=== PATIENT | male | born 1960 | race Caucasian/White ===

== ENCOUNTER 2019-04-07 07:51 | Day surgery (SDC) | payer BC ==
[~2019-04-07 07:51] MED LIST: ACETAMINOPHEN 500 MG TABLET PO ONE; CEFAZOLIN 1 Gram 1 GM/50 ML BAG IVPB ONE; CEFAZOLIN 2 Gram 2 GM/50 ML BAG IVPB ONE; CELECOXIB 100 MG CAPSULE PO ONE; FAMOTIDINE 20MG TABLET PO ONE; METOCLOPRAMIDE 10 MG TABLET PO ONE; SCOPOLAMINE 1 PATCH TDSY TD ONE; VANCOMYCIN 1GM/200ML PREMIX 1 GM/200 ML PIGGYBACK IVPB ONE
[2019-04-07] MEDS ORDERED: ROPIVACAINE HCL (NAROPIN) /PF 5MG/ML 20ML VIAL IV ONE (07:52)
[2019-04-07] MEDS ORDERED: LIDOCAINE 2% MDV (20MG/ML) 20ML VIAL IV ONE (07:52)
[2019-04-07] MEDS ORDERED: MIDAZOLAM HCL 2MG/2ML VIAL IV ONE (07:52)
[2019-04-07] MEDS ORDERED: ONDANSETRON HCL IV 4 MG/2 ML VIAL IVP ONE (07:52)
[2019-04-07] MEDS ORDERED: DEXAMETHASONE 4 MG/ML 1ML VIAL IVP ONE (07:52)
[2019-04-07] MEDS ORDERED: PROPOFOL 10 MG/ML VIAL IV ONE (07:52)
[2019-04-07] MEDS ORDERED: HYDROMORPHONE HCL 2 MG/ML VIAL IM PRN ×2 (08:18)
[2019-04-07] MEDS ORDERED: AL HYDROX/MAG HYDROX 30ML UD PO PRN (08:18)
[2019-04-07] MEDS ORDERED: PROMETHAZINE HCL 12.5 MG in 0.9 % SODIUM CHLORIDE 100ML 50 ML IVPB PRN (08:18)
[2019-04-07] MEDS ORDERED: ONDANSETRON HCL IV 4 MG/2 ML VIAL IVP PRN (08:18)
[2019-04-07] MEDS ORDERED: METOCLOPRAMIDE HCL 10 MG/2 ML VIAL IVP PRN (08:18)
[2019-04-07] MEDS ORDERED: ACETAMINOPHEN 325 MG TAB PO PRN (08:18)
[2019-04-07] MEDS ORDERED: NALOXONE 0.4 MG/1 ML VIAL IVP PRN (08:18)
[2019-04-07] MEDS ORDERED: HYDROCODONE/APAP 5/325MG TABLET PO PRN (08:18)
[2019-04-07] MEDS ORDERED: ACETAMINOPHEN W/ CODEINE 300MG/60MG TABLET PO PRN (08:18)
[2019-04-07] MEDS ORDERED: HYDROCODONE/APAP 7.5/325MG TABLET PO PRN (08:18)
[2019-04-07] MEDS ORDERED: DIPHENHYDRAMINE HCL 25 MG CAPSULE PO PRN (08:18)
[2019-04-07] MEDS ORDERED: KETOROLAC 30 MG/ML VIAL IVP PRN (08:18)
[2019-04-07] MEDS ORDERED: ACETAMINOPHEN W/ CODEINE 300MG/30MG TABLET PO PRN ×2 (08:18)
[2019-04-07] MEDS ORDERED: TRAMADOL HCL 50 MG TABLET PO PRN ×2 (08:18)
[2019-04-07] MEDS ORDERED: BISACODYL 10 MG SUPP RC PRN (08:18)
[2019-04-07] MEDS ORDERED: ZOLPIDEM TARTRATE 5 MG TABLET PO PRN (08:18)
[2019-04-07] MEDS ORDERED: MAGNESIUM HYDROXIDE 30 ML UDC PO PRN (08:18)
[2019-04-07] MEDS ORDERED: RINGERS SOLUTION,LACTATED 1,000 ML IV ONE ×4 (08:30→11:45)
[2019-04-07 08:48] LABS: ABO GROUP A; ANTIBODY SCREEN NEGATIVE (NEGATIVE); RH TYPE POSITIVE
[2019-04-07] MEDS ORDERED: BUPIVACAINE 0.5% W/EPI MPF 30 ML VIAL SQ ONE (10:48)
[2019-04-07] MEDS ORDERED: BUPIVACAINE LIPOSOME 266MG/20ML VIAL SQ ONE (10:48)
[2019-04-07] MEDS ORDERED: TRANEXAMIC ACID 1,000 MG/10 ML ML IU ONE (10:48)
[2019-04-07] MEDS ORDERED: TRANEXAMIC ACID 1,000 MG/10 ML ML IVPB ONE (10:49)
[2019-04-07] MEDS ORDERED: VANCOMYCIN HCL 1 GM VIAL IR ONE (10:49)
[2019-04-07] MEDS ORDERED: VANCOMYCIN HCL 1 GM VIAL IU ONE (10:49)
[2019-04-07] MEDS ORDERED: DEXTROSE 5 % AND 0.9 % NACL 1,000 ML IV PRN (13:00)
[2019-04-07] MEDS ORDERED: FLU VAC QS 2019-20 (INPT, 6MO+) 60MCG/0.5ML IM ONE (13:29)
[2019-04-07] MEDS: HYDROCODONE/APAP 5/325MG TABLET PO PRN (14:10)
[2019-04-07] MEDS ORDERED: PROAIR HFA INH PRN (14:33)
--- NOTE | 2019-04-07 15:43 | Rehab Evaluation ---
Patient Information - Patient Information Diagnosis: L Knee DJD Ordered Treatment: PT Evaluate and Treat Status: Initial Evaluation Surgery: Yes (L TKA) Date of Surgery: 04/07/19 Past Medical/Surgical Hx: PAST MEDICAL/SURGICAL HISTORY Past Surgical History RTKA 2013 C SCOPE RIGHT KNEE SCOPE 2002 PMH - Respiratory Hx Respiratory Disorders Yes Hx Asthma Yes: CONTROLLED WITH MEDS Hx Bronchitis Yes Hx Pneumonia Yes Hx Sleep Apnea Yes Hx of CPAP Yes Hx of SOB Yes: WITH EXERTION Comment: DRY COUGH X'S 9 MONTHS JUST STARTING A BURST OF PREDNISONE ALLERGY RELATED PMH - Cardiovascular Hx Cardiovascular Disorders Yes Hx Edema Yes: AT TIMES Hx Hypertension Yes: CONTROLLED WITH MEDS Hx Palpitations Yes: HX OF HAD NEGATIVE WORK UP Exercise Tolerance Fair Hx of Migraines Yes: HX OF Comment: D/T KNEE AND ASTHMA PMH - Neuro Hx Neurological Disorders Yes PMH - GI Hx Gastrointestinal Disorders Yes Hx Diverticulitis Yes: HX OF Hx Gastroesophageal Reflux Yes: ON MEDS WITH GOOD CONTROL Hx Liver Disease Yes: OCCASSIONAL HIGH LIVER ENZYMES UNKNOWN ETIOLOGY PMH - Hx Genitourinary Disorders No PMH - Endocrine Hx Endocrine Disorders No PMH - Musculoskeletal Hx Musculoskeletal Disorders Yes Hx Arthritis Yes: SHOULDER LEFT, HANDS LEFT KNEE PMH - Psych Hx Psychiatric Problems No PMH - Hematology/Oncology Hx Hematology/Oncology No Disorders Premorbid Status: Detail (Patient reported that he would use his cane at times before surgery for ambulation.) Social History: Detail (Patient lives in a 2-story home with his . His bedroom and bathroom are on the second floor and he reports that he will be using them when returning home. There are 12-15 steps to get to the second floor with 1 railing. There are 3 steps to enter the home with one railing on the left. In the bathroom there is a tub/shower combination with no grab bars, hand- held shower head, or tub bench. The toilet is of standard height and he stated that there is a sink and he can hang onto the tub to help him get up. He has a front-wheeled walker, a single point cane, and a 4-point cane available to him. 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 discharge.) Precautions: [place], Fall, Other (WBAT on L LE) - Time With Patient Total Time Spent With Patient (Min): 30 Treatment Procedures: Detail (Initial evaluation; low complexity The patient was left in bed with his call light and bedside table within reach. The nursing staff was notified of his position.) Subjective Information - Subjective Information Per Patient (Patient reported that he had sensation in the L LE and his pain was at 3/10 in the L LE.) Objective Data - Pain Pain Present: Yes (L LE) Pain Scale Used: Numeric (1 - 10) (3/10) - Mental Status Patient Orientation: Oriented x3 - Visual Perception Appears within normal limits for therapeutic activities - ROM Not within normal limits (L knee ROM is limited as expected s/p L TKA procedure. L hip and ankle, and R LE ROM is within normal limits for functional activities.) - Strength/Tone Not within normal limits (L knee strength is limited as expected s/p L TKA procedure. L ankle and hip, and R LE strength is within normal limits for functional activities.) - Bed Mobility Independent (Patient was able to move himself to the edge of the bed, and moved himself up in bed independently.) - Transfers Needs Assist (Patient required min assist to help move himslef to sitting from supine. Sit to supine, sit to stand, and stand to sit transfers were done independently.) - Balance Balance Sitting: Good Balance Standing: Good - Sensation Intact - Gait Detail (Patient ambulated 110 feet over smooth surfaces, WBAT on the L LE, with a front-wheeled walker and contact guard of 1.) Therapy Assessment - Therapy Assessment Detail (Patient presents with decreased L knee ROM, L knee pain, and gait abnormalities that make him a good candidate for inpatient physical therapy. He will progress towards meeting his inpatient therapy goals by the time of discharge.) Problem List - Problem List Physical Therapy Problem List: Detail (1. L knee pain 2. Decreased L knee ROM 3. Decreased L knee strength 4. Gait abnormalities 5. Decreased tolerance for stairs 6. Min assist needed for transfers) Goals - Goals Physical Therapy Goals: 1. Patient will demonstrate correct form of HEP exercises to increase L knee strength and ROM following discharge. 2. Patient will be able to ambulate household distances independently with a front-wheeled walker to get around his home following discharge. 3. Patient will complete stair training over 12 stairs with correct form with supervision to be able to get to the second floor of his home. 4. Patient will be able to complete all transfers independently. Prognosis - Prognosis Good Plan - Plan Physical Therapy Plan: Patient will be seen for 1-2 more sessions for gait training, stair training, therapeutic exercises and activities, and HEP instruction.
[2019-04-07] MEDS: BENZONATATE 100 MG PO SCH ×2 (16:19→21:31)
[2019-04-07] MEDS: VANCOMYCIN 1GM/200ML PREMIX 1 GM/200 ML PIGGYBACK IVPB SCH (21:00)
[2019-04-07] MEDS: FERROUS SULFATE 325 MG TAB PO SCH (21:27)
[2019-04-07] MEDS: DOCUSATE SODIUM 100 MG CAPSULE PO SCH (21:28)
[2019-04-07] MEDS: METOPROLOL SUCCINATE 50MG PO SCH (21:29)
[2019-04-07] MEDS ORDERED: MONTELUKAST 10MG PO SCH (22:00)
[2019-04-07] MEDS ORDERED: ENALAPRIL 20 MG PO SCH (22:00)
[2019-04-07] MEDS ORDERED: PANTOPRAZOLE 40MG PO SCH (22:00)
--- NOTE | 2019-04-08 06:12 | Operative Note ---
DATE OF SURGERY: 04/07/2019 PREOPERATIVE DIAGNOSIS: 1. END STAGE LEFT KNEE ARTHROSIS. 2. MORBID OBESITY. POSTOPERATIVE DIAGNOSIS: 1. END STAGE LEFT KNEE ARTHROSIS. 2. MORBID OBESITY. OPERATION: LEFT TOTAL KNEE ARTHROPLASTY. SURGEON: Igor Wade M.D. ANESTHESIA: Spinal. ANESTHESIA PROVIDER: Ahsan Clifford CRNA COMPLICATIONS: None. ESTIMATED BLOOD LOSS: Minimal. OPERATIVE FINDINGS: [id number] arthrosis. COMPONENTS PLACED: 2 grams Vancomycin cement, [employer]an [employer]hew Journey II Oxinium total knee arthroplasty system, size 7 femoral component, size 7 tibial baseplate, a 12 mm thick tibial poly insert and 35 mm cemented patellar component. INDICATIONS: This is a 58-year-old male who is well known to myself, he is status post right knee arthroplasty done by myself about seven years ago, now scheduled for a left. I explained all risks and benefits in detail for the diagnosis and procedure including, but not limited to infection, nerve injury, vessel injury, persistent pain, stiffness, numbness and tingling in the knee, periprosthetic fracture, need for resection arthroplasty should components become infected or loosen, nerve injury, vessel injury,need for further procedures, need for anticoagulation to prevent blood clots and risks associated with these medications. All of his questions were answered, rehab course was outlined, and he agreed to proceed. PROCEDURE: The patient was brought back to the Operating Room and placed in the supine position. Spinal anesthesia was induced and his left lower extremity was prepped and draped in sterile fashion. The left knee was prepped again with ChloraPrep after it was draped. Intraoperative timeout was performed. Next, we exsanguinated the leg with Esmarch, flexed the knee, did not use tourniquet, but used Aquamantys during the entire case with his tourniquet loose. Next, skin and subcutaneous tissue was dissected down, we used Aquamantys in each layer and level of approach. Incised the capsule medially around the medial border of the patella to the tibial tubercle, incised the vastus medialis in line with its fibers in a mid vastus approach. Everted the patella, partially resected the retropatellar fat pad, flexed the knee, had [id number] medial compartment arthrosis and we drilled the intercondylar drill hole and inserted the intramedullary guide rosas, 6-degree cutting block. Aligned off the distal femoral condyles, pinned it, +2 mm position, and then cut the distal femoral condyle. We then placed sizing jig in the distal femoral condyle and sized to be right on size 7. Through the previously placed pin holes, we placed the size 7 cutting jig, we dialed the anterior cut so it would come out flush without notching, we cut and verified that it was a proper cut, good orientation, nice flush cut, felt notching and then pinned the cutting jig and cut the remainder chamfer cuts in the usual fashion. Next placed a size 7 trial component, centered it, and removed osteophytes off the periphery. Pinned it in place and then inserted the femoral resection collet, and reamed out the cruciate bone block. Attention was turned to the tibia, exposed the proximal tibia to see the spikes in the tubercular groove 2 fingerbreadths distally at the anterior cortex with slight posterior slope and off the center third tibial tubercle we referenced the cutting jig using a stylus for a 7 mm cut at the higher lateral plateau, we pinned that cutting jig provisionally in place with two anterior posterior pins, we then rechecked alignment of the cuts using a drop rosas centered on the tibial anatomic axis, and then cross pinned the cutting jib completing its fixation and cut the tibia. Next, removed osteophytes off the posterior femoral condyle, check flexion and extension gaps and basically sized up to a size 12 mm thick poly insert, this allowed for 1-2 mm varus/valgus laxity and flexion extension, and symmetric flexion and extension gaps. Next, took in knee in flexion and sized the tibial baseplate up to a size 7 and then replaced all trial components and set the rotation tibial baseplate again in extension using the alignment rosas centered on hip joint and ankle joint. Marked electrocautery butts off the anterior tibial cortex off the laser butts of the tibial baseplate. Next attention was turned to patella, and measured the patellar at 26 mm, set the cutting jig at 17 mm to allow for 9 mm thick polyp insert, we then cut the patella, chamfered off the lateral patellar facet, he had very oval. The medial lateral shaped patella was 50 x 30 mm in height and then sized to be 35, medialized as much as possible, drilled three peg holes, and then placed the trial patella and then did trial range of motion. The patella tracked nicely handsfree with full extension, flexion to 134 degrees, again symmetric flexion/extension gaps were found and cement was mixed. Next then took the knee into flexion, set the rotation tibial baseplate again off the previously placed electrocautery butts, pinned it in place, and drilled out keel punch and keel hole, placed a bone plug in the femoral canal hole, placed the drill bit in the tibial hole, and irrigate copiously off the bony surface with pulse lavage and antibiotic solution. Next, then changed gloves, brought in a clean sheet, we injected the posterior capsule and recess with 0.5% Marcaine with epi, tranexamic acid, and Exparel mixture. Next, then pre-coated both surfaces and packed down the tibial surface first and then the femoral component next and then clamped down the patellar component and held the knee in extension, cement hardened, and remove any excess cement. Once the cement hardened, we took the knee to flexion, distracted the knee with bone hook and sponge, removing any excess cement around the edges of the components, we injected our mixture of 0.5% Marcaine with epi, tranexamic acid and and Exparel in the posterior capsule again after cauterizing and irrigating again and then inserted the real tibial poly insert, verified it was interlocked mediolaterally, we found range of motion to be the same. Irrigated again and injected our mixture more superficial and subcutaneous area in the capsule now. Next, closed the capsule in flexion in vastus split using running #2 Quill suture securely. Irrigate and close the skin deep with 2-0 Vicryl and then Aquacel dressing was applied along with Negro wrap. The patient tolerated the procedure well. No intraoperative complications. Sponge, needle, and blade counts were correct. Sent to Recovery Room stable, neurovascularly intact. He will be discharged to the floor. Likely discharge in 1-2 days, home therapy nurse. cc: Dr. Praful Pabon, [place]. JOB NUMBER: [id number] [facility]
[2019-04-08 06:43] LABS: HEMATOCRIT 41.2 % (42.0-52.0); HEMOGLOBIN 13.4 gm/dl (14.0-18.0)
--- NOTE | 2019-04-08 08:17 | Rehab Evaluation ---
Patient Information - Patient Information Diagnosis: L Knee DJD Ordered Treatment: OT Evaluate and Treat Status: Initial Evaluation Surgery: Yes (L TKA) Date of Surgery: 04/07/19 Past Medical/Surgical Hx: PAST MEDICAL/SURGICAL HISTORY Past Surgical History RTKA 2013 C SCOPE RIGHT KNEE SCOPE 2002 PMH - Respiratory Hx Respiratory Disorders Yes Hx Asthma Yes: CONTROLLED WITH MEDS Hx Bronchitis Yes Hx Pneumonia Yes Hx Sleep Apnea Yes Hx of CPAP Yes Hx of SOB Yes: WITH EXERTION Comment: DRY COUGH X'S 9 MONTHS JUST STARTING A BURST OF PREDNISONE ALLERGY RELATED PMH - Cardiovascular Hx Cardiovascular Disorders Yes Hx Edema Yes: AT TIMES Hx Hypertension Yes: CONTROLLED WITH MEDS Hx Palpitations Yes: HX OF HAD NEGATIVE WORK UP Exercise Tolerance Fair Hx of Migraines Yes: HX OF Comment: D/T KNEE AND ASTHMA PMH - Neuro Hx Neurological Disorders Yes PMH - GI Hx Gastrointestinal Disorders Yes Hx Diverticulitis Yes: HX OF Hx Gastroesophageal Reflux Yes: ON MEDS WITH GOOD CONTROL Hx Liver Disease Yes: OCCASSIONAL HIGH LIVER ENZYMES UNKNOWN ETIOLOGY PMH - Hx Genitourinary Disorders No PMH - Endocrine Hx Endocrine Disorders No PMH - Musculoskeletal Hx Musculoskeletal Disorders Yes Hx Arthritis Yes: SHOULDER LEFT, HANDS LEFT KNEE PMH - Psych Hx Psychiatric Problems No PMH - Hematology/Oncology Hx Hematology/Oncology No Disorders Premorbid Status: Detail (Patient reported that he would use his cane at times before surgery for ambulation. He was Ind with yard work, snow removal and shared home mgmt tasks with family.) Social History: Detail (Patient lives in a 2-story home with his and adult son. His bedroom and bathroom are on the second floor and he reports that he will be using them when returning home. There are 12 steps to get to the second floor with 1 railing. There are 3 steps to enter the home with one railing on the left. In the bathroom there is a tub/shower combination with no grab bars, hand-held shower head, or tub bench. The toilet is of standard height and he stated that there is a sink and he can hang onto the tub to help him get up. He has a front-wheeled walker, a single point cane, and a 4-point cane as well as a crna available to him. 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 discharge.) Precautions: [place], Fall, Other (WBAT on L LE) - Time With Patient Total Time Spent With Patient (Min): 40 Treatment Procedures: Detail (OT eval low complexity) Subjective Information - Subjective Information Per Patient Objective Data - Pain Pain Present: Yes (08/11) - Mental Status Patient Orientation: Oriented x3 - Visual Perception Appears within normal limits for therapeutic activities - ROM Within normal limits (Richard UE AROM WNL) - Strength/Tone Within normal limits (Richard UE strength WNL) - Coordination Appears within normal limits for therapeutic activities - Transfers Independent (Ind with sit to stand from recliner chair.) - Balance Balance Sitting: Good Balance Standing: Good - Sensation Intact - ADL's/IADL's Detail (Pt educated and able to demonstrate modified LE dressing techniques including doffing briefs and slipper sock and donning shanti sock (with assist), underwear, sweat pants and velcro tennis shoes. Reviewed kitchen, shower, laundry safety and modifications, pt verbalized learning.) Therapy Assessment - Therapy Assessment Detail (Pt is Ind with modified LE dressing techniques.) Problem List - Problem List Physical Therapy Problem List: Detail (1. L knee pain 2. Decreased L knee ROM 3. Decreased L knee strength 4. Gait abnormalities 5. Decreased tolerance for stairs 6. Min assist needed for transfers) Occupational Therapy Problem List: Detail (No current IP OT problems identified.) Goals - Goals Physical Therapy Goals: 1. Patient will demonstrate correct form of HEP exercises to increase L knee strength and ROM following discharge. 2. Patient will be able to ambulate household distances independently with a front-wheeled walker to get around his home following discharge. 3. Patient will complete stair training over 12 stairs with correct form with supervision to be able to get to the second floor of his home. 4. Patient will be able to complete all transfers independently. Occupational Therapy Goals: No current IP OT goals identified. Prognosis - Prognosis Good Plan - Plan Physical Therapy Plan: Patient will be seen for 1-2 more sessions for gait training, stair training, therapeutic exercises and activities, and HEP instruction. Occupational Therapy Plan: No further IP OT recommended. Thank you for this referral.
[2019-04-08] MEDS: VANCOMYCIN 1GM/200ML PREMIX 1 GM/200 ML PIGGYBACK IVPB SCH (08:41)
[2019-04-08] MEDS: HYDROCODONE/APAP 5/325MG TABLET PO PRN (08:42)
[2019-04-08] MEDS: FERROUS SULFATE 325 MG TAB PO SCH (09:43)
[2019-04-08] MEDS: DOCUSATE SODIUM 100 MG CAPSULE PO SCH (09:43)
[2019-04-08] MEDS: METOPROLOL SUCCINATE 50MG PO SCH (09:46)
[2019-04-08] MEDS: BENZONATATE 100 MG PO SCH (09:47)
[2019-04-08] MEDS ORDERED: RIVAROXABAN 10 MG TABLET PO SCH (10:00)
[2019-04-08] MEDS ORDERED: CELECOXIB 100 MG CAPSULE PO SCH (10:00)
[2019-04-08] MEDS ORDERED: BREO ELLIPTA INH SCH (10:00)
[2019-04-08] MEDS ORDERED: HYDROCHLOROTHIAZIDE 12.5 MG PO SCH (10:00)
--- NOTE | 2019-04-08 11:52 | Physical Therapy Tx Note ---
Physical Therapy Tx Note - Treatment Note Tolerated: Good Total Time Spent With Patient: 25 Physical Therapy Tx Note: Detail (The patient was up in a recliner when PT arrived. The patient's TKA HEP was reviewed and pt. completed the following: seated heel slides, quad sets, gluteal sets, hamstring sets, SLR and ankle pumps. The patient ambulated independently WBAT on L LE with front wheeled walker a distance of 120 feet x 1. The patient ambulated on a flight of 3 stairs and a flight of 7 stairs with use of one railing and cane using proper technique with supervision for safety only. The patient has met all inpt. PT goals and is discharged from inpt. PT.) Physical Therapy Problem List: Detail (1. L knee pain 2. Decreased L knee ROM 3. Decreased L knee strength 4. Gait abnormalities 5. Decreased tolerance for stairs 6. Min assist needed for transfers) Physical Therapy Goals: 1. Patient will demonstrate correct form of HEP exercises to increase L knee strength and ROM following discharge. (Goal Met). 2. Patient will be able to ambulate household distances independently with a front-wheeled walker to get around his home following discharge.(Goal Met). 3. Patient will complete stair training over 12 stairs with correct form with supervision to be able to get to the second floor of his home. (Goal Met). 4. Patient will be able to complete all transfers independently. (Goal Met) Physical Therapy Plan: The patient is discharged from inpt. PT and is to continue with Home PT.
== END 2019-04-08 14:05 | disposition home health service (06) ==
LOC: SUR 07:51 → MEDSURG 13:11 → SUR 04-08 14:05
PROVIDERS: ATTEND Orthopaedic Surgery
DX: M16.12 Unilateral primary osteoarthritis, left hip (principal); E66.01 Morbid (severe) obesity due to excess calories; I10 Essential (primary) hypertension; J45.909 Unspecified asthma, uncomplicated; G47.33 Obstructive sleep apnea (adult) (pediatric); Z23 Encounter for immunization
CPT/HCPCS: 27447; 01402; 64447; 85018; 85014; 36416; 82948; 86900; 86901; 86850; 94640; 90686; 76942; C1776 ×3; J1885; J2405; J3370 ×3; J0690 ×2; C9290; J2795; J7042; J7120